=== PATIENT | female | born 1940 | race Caucasian/White ===

== ENCOUNTER 2017-11-20 23:29 | Inpatient (IN) | payer MEDICARE, MEDICAID ==
[~2017-11-20] VITALS: Ht 157.5 cm; Wt 58.6 kg
[~2017-11-20 23:29] MED LIST: ALPR-623 PO; CEFP100T7 PO; CEPH500C5 PO; COU5T PO; CYA500T PO; FAMO20TA8 PO; FLUT16SP2 BOTHNARES; KRIL500C PO; MAGN400C PO; PHEN-873 PO; SOTA80TA69 PO
[2017-11-20] MEDS ORDERED: normal saline 1000ML IV soln IVB ONE (23:50)
[2017-11-20] MEDS ORDERED: ondansetron/PF 4mg/2ml inj IV ONE (23:50)
[2017-11-20 23:55] LABS: BASOPHILS # (AUTO) 0.1 X10'3 (0-0.2); BASOPHILS % (AUTO) 1.3 % (0-1); EOSINOPHILS % (AUTO) 0.3 % (0-6); HEMATOCRIT 39.7 % (35.0-45.0); HEMOGLOBIN 13.5 g/dl (12.0-16.0); LYMPHOCYTES # (AUTO) 0.8 X10'3 (1.1-4.8); LYMPHOCYTES % (AUTO) 12.5 % (21-51); MEAN CORPUSCULAR HEMOGLOBIN 31.3 PG (27.0-31.0); MEAN CORPUSCULAR HGB CONC 34.1 % (33.0-36.5); MEAN CORPUSCULAR VOLUME 91.8 FL (78-98); MEAN PLATELET VOLUME 6.8 FL (7.4-10.4); MONOCYTES # (AUTO) 0.2 X10'3 (0-0.9); MONOCYTES % (AUTO) 3.5 % (2-12); NEUTROPHILS # (AUTO) 5.3 X10'3 (1.8-7.7); NEUTROPHILS % (AUTO) 82.4 % (42-75); PLATELET COUNT 204 X10'3 (140-440); RED BLOOD COUNT 4.32 X10'6 (4.20-5.60); RED CELL DISTRIBUTION WIDTH 13.3 % (11.5-14.5); WHITE BLOOD COUNT 6.5 X10'3 (4.5-11.0)
[2017-11-21 00:14] LABS: ALANINE AMINOTRANSFERASE 817 U/L (12-78); ALBUMIN 3.8 G/DL (3.4-5.0); ALBUMIN/GLOBULIN RATIO 1.1 (1.1-1.5); ALKALINE PHOSPHATASE 167 IU/L (46-116); ANION GAP 5 (8-16); BILIRUBIN,TOTAL 1.6 MG/DL (0.1-1.0); BLOOD UREA NITROGEN 12 MG/DL (7-18); CALCIUM 8.8 MG/DL (8.5-10.1); CHLORIDE 104 MMOL/L (99-107); GLUCOSE 141 MG/DL (70-104); LIPASE 232 U/L (73-393); POTASSIUM 3.6 MMOL/L (3.5-5.1); SODIUM 140 MMOL/L (135-145); TOTAL PROTEIN 7.3 G/DL (6.4-8.2); eGFR > 90 ML/MIN
[2017-11-21] MEDS ORDERED: iohexol 300mg/ml 100ml inj. ONE (00:20)
[2017-11-21 00:22] LABS: ASPARTATE AMINO TRANSFERASE 1173 U/L (10-37)
[2017-11-21 00:57] LABS: CLARITY,URINE CLEAR (Clear); COLOR,URINE YELLOW (Yellow); GLUCOSE, URINE NEGATIVE (Neg); KETONES,URINE NEGATIVE (Neg); LEUKOCYTE ESTERASE ,URINE NEGATIVE (Neg); NITRITES, URINE NEGATIVE (Neg); OCCULT BLOOD,URINE NEGATIVE (Neg); PROTEIN,URINE NEGATIVE (Neg); UROBILINOGEN,URINE 0.2 E.U/dL (0.2-1.0)
[2017-11-21 01:12] LABS: UA COLLECTION TYPE CLN CATCH MIDSTREAM
[2017-11-21] MEDS ORDERED: ondansetron/PF 4mg/2ml inj IV PRN (05:40)
[2017-11-21] MEDS ORDERED: HYDROmorphone 1 mg/ml syringe IV PRN (05:40)
[2017-11-21] MEDS ORDERED: piperacillin/tazo 3.375gm/50ml 50 ML IV ONE (05:40)
[2017-11-21] MEDS: normal saline 1000ml 1,000 ML IV SCH ×2 (06:33→12:39)
[2017-11-21] MEDS ORDERED: NORMAL SALINE IV ONE (09:00)
[2017-11-21] MEDS ORDERED: SINCALIDE IV ONE (09:00)
[2017-11-21 11:00] VITALS: BP 131/78
[2017-11-21] MEDS: sotalol 80mg tablet PO SCH ×2 (11:46→20:17)
[2017-11-21 11:49] LABS: INR 1.1 INR; PARTIAL THROMBOPLASTIN TIME 24 SECONDS (22-32); PROTHROMBIN TIME 11.1 SECONDS (9.0-12.0)
[2017-11-21] MEDS: piperacillin/tazo 3.375gm/50ml 50 ML IV SCH ×2 (14:47→20:17)
[2017-11-21 20:00] VITALS: BP 122/64
[2017-11-21] MEDS: acetaminophen 325mg tablet PO PRN (21:34)
[2017-11-22] VITALS: BP 127/57
[2017-11-22] MEDS: piperacillin/tazo 3.375gm/50ml 50 ML IV SCH ×4 (01:38→20:16)
[2017-11-22] MEDS: normal saline 1000ml 1,000 ML IV SCH ×3 (01:38→14:45)
[2017-11-22 06:07] LABS: BASOPHILS % (AUTO) 0.7 % (0-1); EOSINOPHILS # (AUTO) 0.1 X10'3 (0-0.9); EOSINOPHILS % (AUTO) 3.5 % (0-6); HEMATOCRIT 35.4 % (35.0-45.0); HEMOGLOBIN 11.9 g/dl (12.0-16.0); LYMPHOCYTES # (AUTO) 1.7 X10'3 (1.1-4.8); LYMPHOCYTES % (AUTO) 42.4 % (21-51); MEAN CORPUSCULAR HGB CONC 33.6 % (33.0-36.5); MEAN CORPUSCULAR VOLUME 92.2 FL (78-98); MEAN PLATELET VOLUME 7.4 FL (7.4-10.4); MONOCYTES # (AUTO) 0.4 X10'3 (0-0.9); MONOCYTES % (AUTO) 8.7 % (2-12); NEUTROPHILS # (AUTO) 1.8 X10'3 (1.8-7.7); NEUTROPHILS % (AUTO) 44.7 % (42-75); PLATELET COUNT 171 X10'3 (140-440); RED BLOOD COUNT 3.84 X10'6 (4.20-5.60); RED CELL DISTRIBUTION WIDTH 13.3 % (11.5-14.5); WHITE BLOOD COUNT 4.1 X10'3 (4.5-11.0)
[2017-11-22 06:47] LABS: ALANINE AMINOTRANSFERASE 397 U/L (12-78); ALBUMIN 2.9 G/DL (3.4-5.0); ALKALINE PHOSPHATASE 91 IU/L (46-116); ANION GAP 6 (8-16); ASPARTATE AMINO TRANSFERASE 192 U/L (10-37); BILIRUBIN,TOTAL 0.7 MG/DL (0.1-1.0); BLOOD UREA NITROGEN 10 MG/DL (7-18); BUN/CREATININE RATIO 12.5 (6.6-38.0); CALCIUM 8.1 MG/DL (8.5-10.1); CHLORIDE 110 MMOL/L (99-107); GLUCOSE 83 MG/DL (70-104); POTASSIUM 3.7 MMOL/L (3.5-5.1); SODIUM 143 MMOL/L (135-145); TOTAL CARBON DIOXIDE 26.7 MMOL/L (24-32); TOTAL PROTEIN 5.8 G/DL (6.4-8.2); eGFR 69 ML/MIN
[2017-11-22 07:28] VITALS: BP 143/86
[2017-11-22] MEDS: sotalol 80mg tablet PO SCH ×2 (08:30→20:16)
[2017-11-22] MEDS: acetaminophen 325mg tablet PO PRN ×2 (08:30→19:05)
[2017-11-22 11:45] VITALS: BP 130/80
[2017-11-22 20:00] VITALS: BP 126/73
[2017-11-23] VITALS (26 sets, daily range): BP systolic 128–203; BP diastolic 50–118
[2017-11-23] MEDS: piperacillin/tazo 3.375gm/50ml 50 ML IV SCH ×4 (02:19→20:56)
[2017-11-23] MEDS: acetaminophen 325mg tablet PO PRN (02:23)
[2017-11-23] MEDS: normal saline 1000ml 1,000 ML IV SCH ×2 (05:28→17:39)
[2017-11-23 06:08] LABS: BASOPHILS % (AUTO) 0.6 % (0-1); EOSINOPHILS # (AUTO) 0.2 X10'3 (0-0.9); EOSINOPHILS % (AUTO) 3.7 % (0-6); HEMATOCRIT 34.5 % (35.0-45.0); HEMOGLOBIN 11.6 g/dl (12.0-16.0); LYMPHOCYTES % (AUTO) 35.4 % (21-51); MEAN CORPUSCULAR HEMOGLOBIN 31.1 PG (27.0-31.0); MEAN CORPUSCULAR HGB CONC 33.6 % (33.0-36.5); MEAN CORPUSCULAR VOLUME 92.8 FL (78-98); MEAN PLATELET VOLUME 7.4 FL (7.4-10.4); MONOCYTES # (AUTO) 0.5 X10'3 (0-0.9); MONOCYTES % (AUTO) 9.2 % (2-12); NEUTROPHILS # (AUTO) 2.9 X10'3 (1.8-7.7); NEUTROPHILS % (AUTO) 51.1 % (42-75); PLATELET COUNT 183 X10'3 (140-440); RED BLOOD COUNT 3.72 X10'6 (4.20-5.60); RED CELL DISTRIBUTION WIDTH 12.8 % (11.5-14.5); WHITE BLOOD COUNT 5.8 X10'3 (4.5-11.0)
[2017-11-23 06:38] LABS: ALANINE AMINOTRANSFERASE 264 U/L (12-78); ALBUMIN 2.9 G/DL (3.4-5.0); ALKALINE PHOSPHATASE 85 IU/L (46-116); ANION GAP 7 (8-16); ASPARTATE AMINO TRANSFERASE 82 U/L (10-37); BILIRUBIN,TOTAL 0.5 MG/DL (0.1-1.0); BLOOD UREA NITROGEN 11 MG/DL (7-18); BUN/CREATININE RATIO 12.2 (6.6-38.0); CALCIUM 8.4 MG/DL (8.5-10.1); CHLORIDE 110 MMOL/L (99-107); GLUCOSE 91 MG/DL (70-104); POTASSIUM 3.6 MMOL/L (3.5-5.1); SODIUM 144 MMOL/L (135-145); TOTAL CARBON DIOXIDE 26.8 MMOL/L (24-32); TOTAL PROTEIN 5.8 G/DL (6.4-8.2); eGFR 60 ML/MIN
[2017-11-23 07:38] LABS: PRE OP PARTIAL THROMB. TIME 26 SECONDS (22-35); PROTHROMBIN TIME 10.7 SECONDS (9.0-12.0)
[2017-11-23] MEDS: sotalol 80mg tablet PO SCH ×2 (07:59→20:57)
[2017-11-23] MEDS ORDERED: ceFAZolin 1000mg inj ONE (13:33)
[2017-11-23] MEDS ORDERED: BUPIVAcaine/PF 2.5 mg/ml (0.25%) 30ml vial ONE (13:33)
[2017-11-23] MEDS ORDERED: ringers solution, lacted 1,000 ML IV SCH (13:54)
[2017-11-23] MEDS ORDERED: ondansetron/PF 4mg/2ml inj IV PRN (13:55)
[2017-11-23] MEDS ORDERED: morphine 2 MG/ML inj. syringe IV PRN ×2 (13:55)
[2017-11-23] MEDS ORDERED: meperidine/PF 25mg/ml syringe IV PRN ×3 (13:55)
[2017-11-23] MEDS ORDERED: proCHLORperazine 10 MG/2 ml inj IV PRN (13:55)
[2017-11-23] MEDS ORDERED: sevoflurane 250ml liquid IH ONE (14:16)
[2017-11-23] MEDS ORDERED: fentaNYL/PF 50MCG/1 ML 2ML syringe ONE (14:20)
[2017-11-23] MEDS ORDERED: midazolam 2 mg/2 ml injection ONE (14:21)
[2017-11-23] MEDS ORDERED: neostigmine methylsulfate 1 MG/ML 10ml vial ONE (15:01)
[2017-11-23] MEDS ORDERED: glycopyrrolate 0.2mg/ml inj ONE (15:01)
[2017-11-23] MEDS ORDERED: rocuronium 10mg/ml inj IV ONE (15:02)
[2017-11-23] MEDS ORDERED: propofol inj 20 ML IV ONE (15:02)
[2017-11-23] MEDS ORDERED: meperidine/PF 50mg/ml syringe ONE (15:54)
[2017-11-23] MEDS ORDERED: meperidine/PF 50mg/ml syringe IV PRN ×3 (16:17→16:18)
[2017-11-23] MEDS ORDERED: ketorolac trometh. 30mg/ml inj. IV ONE (17:50)
[2017-11-23] MEDS: LORazepam 2 mg/ml vial IV PRN (19:31)
[2017-11-23] MEDS ORDERED: HYDROmorphone inj. 0.5 MG/0.5 ML DISP.SYRIN ONE (19:54)
[2017-11-24] VITALS: BP 132/65
[2017-11-24] MEDS: piperacillin/tazo 3.375gm/50ml 50 ML IV SCH ×3 (01:32→14:00)
[2017-11-24] MEDS: normal saline 1000ml 1,000 ML IV SCH ×2 (01:32→15:10)
[2017-11-24] MEDS: HYDROcodone/acetaminophen 5mg/325mg tablet PO PRN (01:49)
[2017-11-24] MEDS ORDERED: HYDROmorphone inj. 0.5 MG/0.5 ML DISP.SYRIN ONE (03:05)
[2017-11-24 04:00] VITALS: BP 155/77
[2017-11-24 06:10] LABS: BASOPHILS % (AUTO) 0.1 % (0-1); EOSINOPHILS # (AUTO) 0.1 X10'3 (0-0.9); EOSINOPHILS % (AUTO) 1.1 % (0-6); HEMATOCRIT 34.6 % (35.0-45.0); HEMOGLOBIN 11.9 g/dl (12.0-16.0); LYMPHOCYTES # (AUTO) 1.2 X10'3 (1.1-4.8); LYMPHOCYTES % (AUTO) 9.1 % (21-51); MEAN CORPUSCULAR HEMOGLOBIN 31.4 PG (27.0-31.0); MEAN CORPUSCULAR HGB CONC 34.6 % (33.0-36.5); MEAN CORPUSCULAR VOLUME 90.8 FL (78-98); MEAN PLATELET VOLUME 7.3 FL (7.4-10.4); MONOCYTES # (AUTO) 0.3 X10'3 (0-0.9); MONOCYTES % (AUTO) 2.2 % (2-12); NEUTROPHILS # (AUTO) 11.7 X10'3 (1.8-7.7); NEUTROPHILS % (AUTO) 87.5 % (42-75); PLATELET COUNT 185 X10'3 (140-440); RED CELL DISTRIBUTION WIDTH 12.8 % (11.5-14.5); WHITE BLOOD COUNT 13.3 X10'3 (4.5-11.0)
[2017-11-24 06:52] LABS: ALANINE AMINOTRANSFERASE 237 U/L (12-78); ALBUMIN 2.9 G/DL (3.4-5.0); ALBUMIN/GLOBULIN RATIO 0.9 (1.1-1.5); ALKALINE PHOSPHATASE 88 IU/L (46-116); ANION GAP 13 (8-16); ASPARTATE AMINO TRANSFERASE 98 U/L (10-37); BILIRUBIN,TOTAL 1.1 MG/DL (0.1-1.0); BLOOD UREA NITROGEN 9 MG/DL (7-18); BUN/CREATININE RATIO 13.4 (6.6-38.0); CALCIUM 8.1 MG/DL (8.5-10.1); CHLORIDE 103 MMOL/L (99-107); CREATININE 0.67 MG/DL (0.40-0.90); GLUCOSE 105 MG/DL (70-104); POTASSIUM 3.1 MMOL/L (3.5-5.1); SODIUM 140 MMOL/L (135-145); TOTAL CARBON DIOXIDE 24.3 MMOL/L (24-32); TOTAL PROTEIN 6.1 G/DL (6.4-8.2); eGFR 85 ML/MIN
[2017-11-24] MEDS: lactobacillus rhamnosus 10,000 MMU CELLS/CAPSULE PO SCH ×2 (07:36→17:47)
[2017-11-24] MEDS: sotalol 80mg tablet PO SCH ×2 (07:47→19:41)
[2017-11-24 08:00] VITALS: BP 102/52
[2017-11-24] MEDS: ketorolac trometh. 30mg/ml inj. IM SCH ×2 (15:10→19:43)
[2017-11-24] MEDS ORDERED: potassium Cl 20 mEq SR tablet PO PRN (18:45)
[2017-11-24 19:00] VITALS: BP 109/60
[2017-11-24] MEDS: potassium Cl 20 mEq SR tablet PO PRN (19:41)
[2017-11-25] VITALS: BP 134/46
[2017-11-25] MEDS: normal saline 1000ml 1,000 ML IV SCH ×3 (00:30→18:28)
[2017-11-25] MEDS: ketorolac trometh. 30mg/ml inj. IM SCH ×2 (02:25→08:00)
[2017-11-25] MEDS: acetaminophen 325mg tablet PO PRN (02:29)
[2017-11-25] MEDS: potassium Cl 20 mEq SR tablet PO PRN (02:29)
[2017-11-25 05:59] LABS: BASOPHILS % (AUTO) 0.4 % (0-1); EOSINOPHILS # (AUTO) 0.2 X10'3 (0-0.9); EOSINOPHILS % (AUTO) 2.6 % (0-6); HEMATOCRIT 30.8 % (35.0-45.0); HEMOGLOBIN 10.6 g/dl (12.0-16.0); LYMPHOCYTES # (AUTO) 1.3 X10'3 (1.1-4.8); MEAN CORPUSCULAR HEMOGLOBIN 31.5 PG (27.0-31.0); MEAN CORPUSCULAR HGB CONC 34.4 % (33.0-36.5); MEAN CORPUSCULAR VOLUME 91.4 FL (78-98); MEAN PLATELET VOLUME 7.6 FL (7.4-10.4); MONOCYTES # (AUTO) 0.4 X10'3 (0-0.9); MONOCYTES % (AUTO) 5.9 % (2-12); NEUTROPHILS # (AUTO) 5.7 X10'3 (1.8-7.7); NEUTROPHILS % (AUTO) 74.1 % (42-75); PLATELET COUNT 162 X10'3 (140-440); RED BLOOD COUNT 3.37 X10'6 (4.20-5.60); RED CELL DISTRIBUTION WIDTH 13.2 % (11.5-14.5); WHITE BLOOD COUNT 7.6 X10'3 (4.5-11.0)
[2017-11-25 06:30] LABS: ALANINE AMINOTRANSFERASE 147 U/L (12-78); ALBUMIN 2.4 G/DL (3.4-5.0); ALBUMIN/GLOBULIN RATIO 0.8 (1.1-1.5); ALKALINE PHOSPHATASE 87 IU/L (46-116); ANION GAP 8 (8-16); ASPARTATE AMINO TRANSFERASE 42 U/L (10-37); BILIRUBIN,TOTAL 0.6 MG/DL (0.1-1.0); BLOOD UREA NITROGEN 12 MG/DL (7-18); BUN/CREATININE RATIO 13.6 (6.6-38.0); CALCIUM 7.9 MG/DL (8.5-10.1); CHLORIDE 109 MMOL/L (99-107); CREATININE 0.88 MG/DL (0.40-0.90); GLUCOSE 124 MG/DL (70-104); POTASSIUM 4.1 MMOL/L (3.5-5.1); SODIUM 143 MMOL/L (135-145); TOTAL CARBON DIOXIDE 25.6 MMOL/L (24-32); TOTAL PROTEIN 5.5 G/DL (6.4-8.2); eGFR 62 ML/MIN
[2017-11-25 07:00] VITALS: BP 137/71
[2017-11-25] MEDS: sotalol 80mg tablet PO SCH ×2 (08:26→21:20)
[2017-11-25] MEDS: lactobacillus rhamnosus 10,000 MMU CELLS/CAPSULE PO SCH ×2 (08:26→17:12)
[2017-11-25] MEDS: ketorolac trometh. 30mg/ml inj. IV SCH ×3 (09:53→21:21)
[2017-11-25] MEDS ORDERED: ketorolac tromethamine 15mg/ml inj. IV SCH (12:00)
[2017-11-25] MEDS: HYDROcodone/acetaminophen 5mg/325mg tablet PO PRN ×2 (14:22→21:22)
[2017-11-25 19:00] VITALS: BP 126/53
[2017-11-26] VITALS: BP 145/57
[2017-11-26] MEDS: ketorolac trometh. 30mg/ml inj. IV SCH ×4 (02:28→19:33)
[2017-11-26] MEDS: normal saline 1000ml 1,000 ML IV SCH ×2 (02:31→15:33)
[2017-11-26 05:45] LABS: BASOPHILS % (AUTO) 0.6 % (0-1); EOSINOPHILS # (AUTO) 0.3 X10'3 (0-0.9); EOSINOPHILS % (AUTO) 4.8 % (0-6); HEMATOCRIT 28.9 % (35.0-45.0); HEMOGLOBIN 9.9 g/dl (12.0-16.0); LYMPHOCYTES # (AUTO) 1.3 X10'3 (1.1-4.8); LYMPHOCYTES % (AUTO) 23.5 % (21-51); MEAN CORPUSCULAR HEMOGLOBIN 31.4 PG (27.0-31.0); MEAN CORPUSCULAR HGB CONC 34.3 % (33.0-36.5); MEAN CORPUSCULAR VOLUME 91.6 FL (78-98); MEAN PLATELET VOLUME 7.6 FL (7.4-10.4); MONOCYTES # (AUTO) 0.4 X10'3 (0-0.9); MONOCYTES % (AUTO) 7.5 % (2-12); NEUTROPHILS # (AUTO) 3.5 X10'3 (1.8-7.7); NEUTROPHILS % (AUTO) 63.6 % (42-75); PLATELET COUNT 158 X10'3 (140-440); RED BLOOD COUNT 3.16 X10'6 (4.20-5.60); RED CELL DISTRIBUTION WIDTH 13.5 % (11.5-14.5); WHITE BLOOD COUNT 5.5 X10'3 (4.5-11.0)
[2017-11-26 06:36] LABS: ALANINE AMINOTRANSFERASE 113 U/L (12-78); ALBUMIN 2.2 G/DL (3.4-5.0); ALBUMIN/GLOBULIN RATIO 0.7 (1.1-1.5); ALKALINE PHOSPHATASE 84 IU/L (46-116); ANION GAP 8 (8-16); ASPARTATE AMINO TRANSFERASE 29 U/L (10-37); BILIRUBIN,TOTAL 0.4 MG/DL (0.1-1.0); BLOOD UREA NITROGEN 12 MG/DL (7-18); BUN/CREATININE RATIO 18.5 (6.6-38.0); CALCIUM 8.1 MG/DL (8.5-10.1); CHLORIDE 108 MMOL/L (99-107); CREATININE 0.65 MG/DL (0.40-0.90); GLUCOSE 92 MG/DL (70-104); POTASSIUM 3.8 MMOL/L (3.5-5.1); SODIUM 142 MMOL/L (135-145); TOTAL CARBON DIOXIDE 25.8 MMOL/L (24-32); TOTAL PROTEIN 5.3 G/DL (6.4-8.2); eGFR 88 ML/MIN
[2017-11-26 08:00] VITALS: BP 155/53
[2017-11-26] MEDS: sotalol 80mg tablet PO SCH ×2 (08:02→19:33)
[2017-11-26] MEDS: lactobacillus rhamnosus 10,000 MMU CELLS/CAPSULE PO SCH ×2 (08:02→16:44)
[2017-11-26] MEDS: HYDROcodone/acetaminophen 5mg/325mg tablet PO PRN ×2 (08:06→19:34)
[2017-11-26 11:58] VITALS: BP 132/66
[2017-11-26 19:00] VITALS: BP 178/69
[2017-11-26] MEDS: LORazepam 2 mg/ml vial IV PRN (23:14)
[2017-11-27] VITALS: BP 184/74
[2017-11-27] MEDS: normal saline 1000ml 1,000 ML IV SCH ×2 (02:16→11:39)
[2017-11-27] MEDS: ketorolac trometh. 30mg/ml inj. IV SCH ×3 (02:17→14:00)
[2017-11-27] MEDS: lactobacillus rhamnosus 10,000 MMU CELLS/CAPSULE PO SCH (08:07)
[2017-11-27] MEDS: sotalol 80mg tablet PO SCH (08:07)
[2017-11-27 08:18] VITALS: BP 143/55
[2017-11-27] MEDS: HYDROcodone/acetaminophen 5mg/325mg tablet PO PRN (10:33)
[2017-11-27 11:00] VITALS: BP 147/66
== END 2017-11-27 17:22 | disposition home or self-care (01) | DRG 419 ==
LOC: ER 23:30 → ED HOLD 11-21 05:39 → SUR 3N 11-21 10:32
PROVIDERS: ADMIT Internal Medicine; ATTEND Family Medicine
PROC: CF141ZZ Planar Nuclear Medicine Imaging of Gallbladder using Technetium 99m (Tc-99m) (ICD-10-PCS; 2017-11-21)
PROC: B4201ZZ Computerized Tomography (CT Scan) of Abdominal Aorta using Low Osmolar Contrast (ICD-10-PCS; 2017-11-21)
PROC: B4281ZZ Computerized Tomography (CT Scan) of Bilateral Renal Arteries using Low Osmolar Contrast (ICD-10-PCS; 2017-11-21)
PROC: B4211ZZ Computerized Tomography (CT Scan) of Celiac Artery using Low Osmolar Contrast (ICD-10-PCS; 2017-11-21)
PROC: 0DNU4ZZ Release Omentum, Percutaneous Endoscopic Approach (ICD-10-PCS; 2017-11-23)
PROC: 0DNL4ZZ Release Transverse Colon, Percutaneous Endoscopic Approach (ICD-10-PCS; 2017-11-23)
PROC: 0FN04ZZ Release Liver, Percutaneous Endoscopic Approach (ICD-10-PCS; 2017-11-23)
PROC: 0FT44ZZ Resection of Gallbladder, Percutaneous Endoscopic Approach (ICD-10-PCS; principal; 2017-11-23 14:16)
DX: K80.00 Calculus of gallbladder with acute cholecystitis without obstruction (principal); I48.0 Paroxysmal atrial fibrillation; E87.6 Hypokalemia; I10 Essential (primary) hypertension; K82.8 Other specified diseases of gallbladder; K66.0 Peritoneal adhesions (postprocedural) (postinfection); Z88.2 Allergy status to sulfonamides; Z88.1 Allergy status to other antibiotic agents; Z88.8 Allergy status to other drugs, medicaments and biological substances; Z79.899 Other long term (current) drug therapy
CPT/HCPCS: 36415; 71045; 74174; 76700; 78227; 80053; 81003; 82948; 83605; 83690; 84484; 85025; 85610; 85730; 87070; 88304; 93005; 96361; 96374; 96375; 99285; A4353; A7000; A9537; J0690; J1170; J1885; J2060; J2175; J2250; J2405; J2543; J2704; J2710; J2805; J3010; J3490; J7030; J7040; J7120; Q9967

== ENCOUNTER 2018-01-31 14:37 | Outpatient (CLI) | payer MEDICARE, MEDICAID ==
[~2018-01-31 14:37] MED LIST changes: -CEFP100T7 PO; -CEPH500C5 PO; -COU5T PO; -FLUT16SP2 BOTHNARES; -PHEN-873 PO
[2018-01-31 14:55] VITALS: BP 136/68
== END 2018-01-31 15:26 | disposition home or self-care (01) ==
LOC: ORTHO 14:37
PROVIDERS: ATTEND Nurse Practitioner Family
DX: S69.92XA Unspecified injury of left wrist, hand and finger(s), initial encounter (principal); I48.91 Unspecified atrial fibrillation; Z88.0 Allergy status to penicillin; Z88.2 Allergy status to sulfonamides; X58.XXXA Exposure to other specified factors, initial encounter; Y93.89 Activity, other specified; Y92.89 Other specified places as the place of occurrence of the external cause; Y99.8 Other external cause status
CPT/HCPCS: 29260; 99213

== ENCOUNTER 2018-02-06 15:43 | Emergency (ER) | payer MEDICARE, MEDICAID ==
[~2018-02-06] VITALS: Ht 157.5 cm; Wt 57.7 kg
[2018-02-06] MEDS ORDERED: normal saline 1000ML IV soln IV ONE (16:35)
[2018-02-06 16:52] LABS: CLARITY,URINE CLEAR (Clear); COLOR,URINE STRAW (Yellow); GLUCOSE, URINE NEGATIVE (Neg); KETONES,URINE NEGATIVE (Neg); LEUKOCYTE ESTERASE ,URINE NEGATIVE (Neg); NITRITES, URINE NEGATIVE (Neg); OCCULT BLOOD,URINE NEGATIVE (Neg); PROTEIN,URINE NEGATIVE (Neg); UA COLLECTION TYPE CLN CATCH MIDSTREAM; UROBILINOGEN,URINE 0.2 E.U/dL (0.2-1.0)
[2018-02-06 17:01] LABS: BASOPHILS % (AUTO) 0.1 % (0-1); EOSINOPHILS % (AUTO) 0.2 % (0-6); HEMATOCRIT 38.2 % (35.0-45.0); HEMOGLOBIN 13.1 g/dl (12.0-16.0); LYMPHOCYTES # (AUTO) 0.5 X10'3 (1.1-4.8); LYMPHOCYTES % (AUTO) 5.8 % (21-51); MEAN CORPUSCULAR HEMOGLOBIN 31.1 PG (27.0-31.0); MEAN CORPUSCULAR HGB CONC 34.2 % (33.0-36.5); MEAN CORPUSCULAR VOLUME 90.7 FL (78-98); MEAN PLATELET VOLUME 6.9 FL (7.4-10.4); MONOCYTES # (AUTO) 0.1 X10'3 (0-0.9); MONOCYTES % (AUTO) 1.3 % (2-12); NEUTROPHILS # (AUTO) 8.4 X10'3 (1.8-7.7); NEUTROPHILS % (AUTO) 92.6 % (42-75); PLATELET COUNT 186 X10'3 (140-440); RED BLOOD COUNT 4.21 X10'6 (4.20-5.60); RED CELL DISTRIBUTION WIDTH 13.4 % (11.5-14.5); WHITE BLOOD COUNT 9.1 X10'3 (4.5-11.0)
[2018-02-06 17:08] LABS: PARTIAL THROMBOPLASTIN TIME 25 SECONDS (22-32); PROTHROMBIN TIME 10.2 SECONDS (9.0-12.0)
[2018-02-06 17:16] LABS: ALANINE AMINOTRANSFERASE 36 U/L (12-78); ALBUMIN 3.5 G/DL (3.4-5.0); ALKALINE PHOSPHATASE 82 IU/L (46-116); ANION GAP 8 (8-16); ASPARTATE AMINO TRANSFERASE 37 U/L (10-37); BILIRUBIN,TOTAL 0.9 MG/DL (0.1-1.0); BLOOD UREA NITROGEN 18 MG/DL (7-18); BUN/CREATININE RATIO 27.3 (6.6-38.0); CALCIUM 8.8 MG/DL (8.5-10.1); CHLORIDE 103 MMOL/L (99-107); CREATININE 0.66 MG/DL (0.40-0.90); GLUCOSE 106 MG/DL (70-104); POTASSIUM 3.9 MMOL/L (3.5-5.1); SODIUM 137 MMOL/L (135-145); TOTAL CARBON DIOXIDE 26.2 MMOL/L (24-32); eGFR 86 ML/MIN
[2018-02-06 18:03] VITALS: BP 132/65
== END 2018-02-06 18:05 | disposition home or self-care (01) ==
LOC: ER 15:43
DX: S00.83XA Contusion of other part of head, initial encounter (principal); R07.81 Pleurodynia; I48.91 Unspecified atrial fibrillation; Z95.0 Presence of cardiac pacemaker; Z88.8 Allergy status to other drugs, medicaments and biological substances; Z88.2 Allergy status to sulfonamides; Z79.899 Other long term (current) drug therapy; X58.XXXA Exposure to other specified factors, initial encounter; Y93.89 Activity, other specified; Y92.89 Other specified places as the place of occurrence of the external cause; Y99.8 Other external cause status
CPT/HCPCS: 36415; 71045; 80053; 81003; 83605; 83735; 84145; 85025; 85610; 85730; 87040; 87186; 99285; J7030

== ENCOUNTER 2018-02-27 17:42 | Emergency (ER) | payer MEDICARE, MEDICAID ==
[~2018-02-27] VITALS: Ht 160 cm; Wt 56.8 kg
[2018-02-27 18:33] VITALS: BP 108/67
== END 2018-02-27 18:33 | disposition home or self-care (01) ==
LOC: ER 17:43
DX: Z48.02 Encounter for removal of sutures (principal); I48.91 Unspecified atrial fibrillation; I10 Essential (primary) hypertension; Z98.890 Other specified postprocedural states; Z88.2 Allergy status to sulfonamides; Z79.899 Other long term (current) drug therapy
CPT/HCPCS: 99281

== ENCOUNTER 2021-04-11 23:32 | Emergency (ER) | payer MEDICARE, MEDICAID ==
[~2021-04-11] VITALS: Ht 160 cm; Wt 54.5 kg
[~2021-04-11 23:32] MED LIST changes: -CYA500T PO; +CYAN500T71 PO; -SOTA80TA69 PO; +SOTA80TA73 PO
[2021-04-12] VITALS: BP 188/81
[2021-04-12] MEDS ORDERED: bisacodyl 10mg suppository rectal RC STA (00:15)
[2021-04-12] MEDS ORDERED: bisacodyl 5mg tablet.DR PO ONE (00:15)
[2021-04-12] MEDS ORDERED: POLY17PO10 PO (01:29)
[2021-04-12] MEDS ORDERED: BISA-78 PO (01:29)
== END 2021-04-12 02:05 | disposition home or self-care (01) ==
LOC: ER 23:33
DX: K59.00 Constipation, unspecified (principal); I48.91 Unspecified atrial fibrillation; I10 Essential (primary) hypertension; Z87.01 Personal history of pneumonia (recurrent); Z88.2 Allergy status to sulfonamides; Z88.1 Allergy status to other antibiotic agents; Z88.8 Allergy status to other drugs, medicaments and biological substances; Z79.899 Other long term (current) drug therapy
CPT/HCPCS: 99283

== ENCOUNTER 2021-04-22 06:09 | Observation (INO) | payer MEDICARE, MEDICAID ==
[2021-04-17 15:16] LABS: CLARITY,URINE CLOUDY (Clear); COLOR,URINE YELLOW (Yellow); GLUCOSE, URINE NEGATIVE (Neg); KETONES,URINE NEGATIVE (Neg); LEUKOCYTE ESTERASE ,URINE TRACE (Neg); NITRITES, URINE NEGATIVE (Neg); OCCULT BLOOD,URINE NEGATIVE (Neg); PROTEIN,URINE NEGATIVE (Neg); UROBILINOGEN,URINE 0.2 E.U/dL (0.2-1.0)
[2021-04-17 15:17] LABS: BASOPHILS # (AUTO) 0.1 X10'3 (0-0.2); BASOPHILS % (AUTO) 1.1 % (0-1); EOSINOPHILS # (AUTO) 0.1 X10'3 (0-0.9); EOSINOPHILS % (AUTO) 1.6 % (0-6); LYMPHOCYTES # (AUTO) 1.7 X10'3 (1.1-4.8); LYMPHOCYTES % (AUTO) 27.4 % (21-51); MEAN CORPUSCULAR HEMOGLOBIN 31.2 PG (27.0-31.0); MEAN CORPUSCULAR HGB CONC 33.2 g/dL (33.0-36.5); MEAN CORPUSCULAR VOLUME 93.7 FL (78-98); MEAN PLATELET VOLUME 7.1 FL (7.4-10.4); MONOCYTES # (AUTO) 0.6 X10'3 (0-0.9); MONOCYTES % (AUTO) 9.1 % (2-12); NEUTROPHILS # (AUTO) 3.8 X10'3 (1.8-7.7); NEUTROPHILS % (AUTO) 60.8 % (42-75); PRE OP HEMATOCRIT 40.4 % (35.0-45.0); PRE OP HEMOGLOBIN 13.4 g/dL (12.0-16.0); PRE OP PLATELET COUNT 212 X10'3 (140-440); RED BLOOD COUNT 4.31 X10'6 (4.20-5.60); RED CELL DISTRIBUTION WIDTH 13.5 % (11.5-14.5)
[2021-04-17 15:19] LABS: UA COLLECTION TYPE NON-SPECIFIED
[2021-04-17 15:20] LABS: AMORPHOUS PHOSPHATES 4+; BACTERIA,URINE NONE SEEN /HPF (Neg); MUCUS STRANDS NONE SEEN /LPF (Neg); RBC,URINE NONE SEEN /HPF (0-2); SQUAMOUS EPITHELIAL CELL,UR NONE SEEN /LPF (FEW); WBC,URINE 0-4 /HPF (0-4)
[2021-04-17 15:34] LABS: ALBUMIN 3.4 G/DL (3.4-5.0); ALBUMIN/GLOBULIN RATIO 0.9 (1.1-1.5); ALKALINE PHOSPHATASE 70 IU/L (46-116); BLOOD UREA NITROGEN 15 MG/DL (7-18); BUN/CREATININE RATIO 20.3 (6.6-38.0); CALCIUM 8.6 MG/DL (8.5-10.1); CHLORIDE 106 MMOL/L (99-107); CREATININE 0.74 MG/DL (0.40-0.90); PRE OP ALT 28 U/L (30-65); PRE OP ANION GAP 6 (8-16); PRE OP AST 19 U/L (10-37); PRE OP BILIRUB, TOTAL 0.4 MG/DL (0.0-1.0); PRE OP GLUCOSE 112 MG/DL (70-104); PRE OP POTASSIUM 4.3 MMOL/L (3.4-5.1); PRE OP SODIUM 141 MMOL/L (135-145); TOTAL PROTEIN 7.1 G/DL (6.4-8.2); eGFR 75 ML/MIN
[2021-04-22] VITALS (27 sets, daily range): BP systolic 107–187; BP diastolic 49–94
[~2021-04-22] VITALS: Ht 157.5 cm; Wt 54.8 kg
[~2021-04-22 06:09] MED LIST changes: -ALPR-623 PO; -CYAN500T71 PO; +DOCUMENT DATE & TIME OF BETA-BLOCKER PO ONE; -FAMO20TA8 PO; -KRIL500C PO; -MAGN400C PO; +cefazolin/dext.iso 2gm/100ml IV ONE; +famotidine 20mg tablet PO ONE; +ringers solution, lacted 1,000 ML IV SCH
[2021-04-22] MEDS ORDERED: BUPIVAcaine 0.5% inj/PF 30 ML ONE (06:40)
[2021-04-22] MEDS ORDERED: fentaNYL/PF 50MCG/1 ML 2ML syringe ONE (07:24)
[2021-04-22] MEDS ORDERED: rocuronium 10mg/ml inj IV ONE (07:28)
[2021-04-22] MEDS ORDERED: LIDOcaine 2% (20mg/ml) 5ml vial ONE (07:28)
[2021-04-22] MEDS ORDERED: propofol inj 20 ML IV ONE (07:28)
[2021-04-22] MEDS ORDERED: BUPIVAcaine 0.5% inj/PF 30 ml vial IJ ONE (07:31)
[2021-04-22] MEDS ORDERED: sevoflurane 250ml liquid IH ONE (08:05)
[2021-04-22] MEDS ORDERED: ondansetron/PF 4mg/2ml inj IV PRN (08:10)
[2021-04-22] MEDS ORDERED: ringers solution, lacted 1,000 ML IV SCH (08:10)
[2021-04-22] MEDS ORDERED: glycopyrrolate 0.2mg/ml inj ONE (10:14)
[2021-04-22] MEDS ORDERED: neostigmine methylsulfate 1 MG/ML 10ml vial ONE (10:14)
[2021-04-22] MEDS ORDERED: hydrALAZINE 20mg/ml inj. IV ONE (10:14)
[2021-04-22] MEDS ORDERED: acetaminophen 1,000mg/100ml IV 100 ML IV ONE (10:14)
[2021-04-22] MEDS ORDERED: ondansetron/PF 4mg/2ml inj ONE (10:14)
[2021-04-22] MEDS ORDERED: dexamethasone sod phosphate 4mg/ml inj. ONE (10:14)
[2021-04-22] MEDS ORDERED: sugammadex 200mg/2ml injection IV ONE (10:53)
--- NOTE | 2021-04-22 10:55 | NUR ---
Received from OR via BED, accompanied by Anesthesiologist DR. GR and report given by Anesthesiologist. PATIENT WAKING UP, C/O PAINFUL ABD-WILL MEDICATE, V/S WNL, SCD ON, 20G TO RUE, LAP SURGICAL SITES TO ABDOMEN X4 WITH DERMABOND - CDI.
[2021-04-22] MEDS: morphine 2 MG/ML inj. syringe IV PRN ×2 (11:04→11:18)
--- NOTE | 2021-04-22 11:30 | NUR ---
PT STAYING FOR OBSERVATION, STILL PAINFUL, USING BOTH MORPHINE AND DILAUDID FOR PAIN CONTROL, DENIES N/V, LAP SITES CDI.
[2021-04-22] MEDS: HYDROmorphone/PF 0.2 MG/ML SYRINGE IV PRN ×2 (11:41→12:48)
--- NOTE | 2021-04-22 12:40 | NUR ---
PT C/O PAIN GIVEN IVP DILAUDID, VSS, WAITING FOR A BED.
--- NOTE | 2021-04-22 13:25 | NUR ---
PT VSS, A/O X 4, PAIN 4/10 TENDER ABD, VOIDING IN BED-ENCOURAGED TO USE BSC OR BEDPAN, LAP SITES X 4 DERMABOND-CDI, PIV 20G TO RUE-LR RUNNING AT 100ML/HR, REPORT CALLED TO ART MELVIN- ALL QUESTIONS ANSWERED. PT TAKEN WITH ALL BELONGINGS TO ROOM 344A, HOOKED UP TO MONITORS, RN IN ROOM TO RECEIVE PT, BED LOW AND LOCKED. Addendum: 04/22/21 at 1416 by Dee Jain RN Amended: Links added.
[2021-04-22] MEDS: normal saline 1000ml 1,000 ML IV SCH ×2 (17:16→22:30)
--- NOTE | 2021-04-22 18:53 | NUR ---
Patient in room [facility]. I have received report from OLEGARIO Oakley and had the opportunity to ask questions and assume patient care.
[2021-04-22] MEDS: sotalol 80mg tablet PO SCH (19:42)
[2021-04-22] MEDS: HYDROcodone/acetaminophen 10/325mg tab PO PRN (22:21)
[2021-04-22] MEDS ORDERED: acetaminophen 325mg tablet PO PRN (23:10)
[2021-04-23 00:27] VITALS: BP 90/56
[2021-04-23] MEDS: normal saline 1000ml 1,000 ML IV SCH ×2 (04:10→16:13)
[2021-04-23 04:19] VITALS: BP 125/50
--- NOTE | 2021-04-23 06:07 | NUR ---
Problems reprioritized. Patient report given, questions answered & plan of care reviewed with OLEGARIO Lopez.
[2021-04-23 07:00] VITALS: BP 121/49
[2021-04-23] MEDS: sotalol 80mg tablet PO SCH ×2 (07:33→22:27)
[2021-04-23 11:00] VITALS: BP 140/58
[2021-04-23] MEDS: HYDROcodone/acetaminophen 10/325mg tab PO PRN ×2 (11:08→22:27)
--- NOTE | 2021-04-23 18:34 | NUR ---
Report given to Cathie RN, patient awake and appropriate in room. No current concerns except that patient has been slightly unsteady today so Cathie will monitor.
[2021-04-23 19:15] VITALS: BP 151/61
--- NOTE | 2021-04-23 23:12 | NUR ---
Patient in room [facility]. I have received report from Jessica MELVIN and had the opportunity to ask questions and assume patient care.
[2021-04-23] MEDS ORDERED: mag hydrox/Alum hydrox/simeth 30ml oral suspension PO PRN (23:55)
[2021-04-24] VITALS (7 sets, daily range): BP systolic 120–194; BP diastolic 54–74
[2021-04-24] MEDS: normal saline 1000ml 1,000 ML IV SCH ×4 (05:28→21:21)
--- NOTE | 2021-04-24 06:39 | NUR ---
Patient in room [facility]. I have received report from Donn MELVIN and had the opportunity to ask questions and assume patient care.
--- NOTE | 2021-04-24 07:05 | NUR ---
Problems reprioritized. Patient report given, questions answered & plan of care reviewed with Jacqui MELVIN.
[2021-04-24] MEDS: sotalol 80mg tablet PO SCH ×2 (09:32→21:22)
--- NOTE | 2021-04-24 16:41 | NUR ---
This afternoon, pt has been stating she has nausea and does not feel ready to go home. Phone call to Dr Martinez, orders received. Will continue to monitor.
--- NOTE | 2021-04-24 18:54 | NUR ---
Problems reprioritized. Patient report given, questions answered & plan of care reviewed with Donn MELVIN.
--- NOTE | 2021-04-24 19:01 | NUR ---
Patient in room [facility]. I have received report from Jacqui MELVIN and had the opportunity to ask questions and assume patient care.
[2021-04-24] MEDS: LORazepam 2 mg/ml vial IV PRN (23:26)
[2021-04-25 06:30] VITALS: BP 163/59
--- NOTE | 2021-04-25 07:10 | NUR ---
Patient in room [facility]. I have received report from OLEGARIO Pop and had the opportunity to ask questions and assume patient care.
[2021-04-25] MEDS ORDERED: magnesium hydroxide 30ml (MOM) UD suspension PO PRN (07:45)
--- NOTE | 2021-04-25 07:55 | NUR ---
Problems reprioritized. Patient report given, questions answered & plan of care reviewed with Jeane RN.
[2021-04-25 08:38] LABS: BASOPHILS % (AUTO) 0.5 % (0-1); EOSINOPHILS # (AUTO) 0.1 X10'3 (0-0.9); EOSINOPHILS % (AUTO) 1.7 % (0-6); HEMATOCRIT 38.5 % (35.0-45.0); HEMOGLOBIN 13.1 g/dl (12.0-16.0); LYMPHOCYTES # (AUTO) 1.1 X10'3 (1.1-4.8); LYMPHOCYTES % (AUTO) 18.2 % (21-51); MEAN CORPUSCULAR HEMOGLOBIN 31.3 PG (27.0-31.0); MEAN CORPUSCULAR VOLUME 92.1 FL (78-98); MEAN PLATELET VOLUME 7.3 FL (7.4-10.4); MONOCYTES # (AUTO) 0.5 X10'3 (0-0.9); MONOCYTES % (AUTO) 7.6 % (2-12); NEUTROPHILS # (AUTO) 4.5 X10'3 (1.8-7.7); PLATELET COUNT 209 X10'3 (140-440); RED BLOOD COUNT 4.17 X10'6 (4.20-5.60); RED CELL DISTRIBUTION WIDTH 13.2 % (11.5-14.5); WHITE BLOOD COUNT 6.3 X10'3 (4.5-11.0)
[2021-04-25 09:17] LABS: ALANINE AMINOTRANSFERASE 36 U/L (12-78); ALBUMIN 2.8 G/DL (3.4-5.0); ALBUMIN/GLOBULIN RATIO 0.8 (1.1-1.5); ALKALINE PHOSPHATASE 71 IU/L (46-116); ANION GAP 7 (8-16); ASPARTATE AMINO TRANSFERASE 30 U/L (10-37); BILIRUBIN,TOTAL 0.8 MG/DL (0.1-1.0); BLOOD UREA NITROGEN 9 MG/DL (7-18); BUN/CREATININE RATIO 14.5 (6.6-38.0); CALCIUM 8.2 MG/DL (8.5-10.1); CHLORIDE 105 MMOL/L (99-107); CREATININE 0.62 MG/DL (0.40-0.90); GLUCOSE 90 MG/DL (70-104); POTASSIUM 3.7 MMOL/L (3.5-5.1); SODIUM 140 MMOL/L (135-145); TOTAL CARBON DIOXIDE 28.2 MMOL/L (24-32); TOTAL PROTEIN 6.5 G/DL (6.4-8.2); eGFR > 90 ML/MIN
[2021-04-25] MEDS: sotalol 80mg tablet PO SCH (09:20)
[2021-04-25 11:00] VITALS: BP 154/60
[2021-04-25] MEDS: LORazepam 2 mg/ml vial IV PRN (13:57)
--- NOTE | 2021-04-25 16:30 | NUR ---
GAURI inst provided to pt.
--- NOTE | 2021-04-25 18:10 | NUR ---
Problems reprioritized. Patient report given, questions answered & plan of care reviewed with Sally RN & JEFFRY RN.
--- NOTE | 2021-04-25 19:03 | NUR ---
Patient in room [facility]. I have received report from AYDEE MELVIN and had the opportunity to ask questions and assume patient care.
--- NOTE | 2021-04-25 19:55 | NUR ---
PATIENT LEFT WITH SON. TRANSPORTED IN A WHEEL CHAIR WITH NO APPARENT DISTRESS.
== END 2021-04-25 20:02 | disposition home or self-care (01) ==
LOC: PAS 06:09 → SUR 3N 12:26
PROVIDERS: ADMIT Surgery; ATTEND Surgery
DX: K40.20 Bilateral inguinal hernia, without obstruction or gangrene, not specified as recurrent (principal); K43.9 Ventral hernia without obstruction or gangrene; I48.91 Unspecified atrial fibrillation; K66.0 Peritoneal adhesions (postprocedural) (postinfection); Z20.822 Contact with and (suspected) exposure to COVID-19; Z87.891 Personal history of nicotine dependence
CPT/HCPCS: 36415; 49650; 49652; 71046; 80053; 81001; 82948; 85025; 87077; 87088; 87186; 96365; 96366; 96375; 96376; 97161; 97530; C1758; C1781; C9399; G0378; J0131; J0360; J1100; J1170; J2001; J2060; J2270; J2405; J2704; J2710; J3010; J7030; U0003; U0005; A4215; A4618; J3490; J7120

== ENCOUNTER 2024-04-03 21:22 | Emergency (ER) | payer MEDICARE, MEDICAID ==
[~2024-04-03] VITALS: Ht 160 cm; Wt 48.8 kg
[~2024-04-03 21:22] MED LIST changes: -DOCUMENT DATE & TIME OF BETA-BLOCKER PO ONE; -cefazolin/dext.iso 2gm/100ml IV ONE; -famotidine 20mg tablet PO ONE; -ringers solution, lacted 1,000 ML IV SCH
[2024-04-03 21:31] VITALS: TEMP 98
[2024-04-03 22:38] LABS: BILIRUBIN,URINE NEGATIVE (Neg); CLARITY,URINE CLEAR (Clear); COLOR,URINE STRAW (Yellow); GLUCOSE, URINE NEGATIVE (Neg); KETONES,URINE NEGATIVE (Neg); LEUKOCYTE ESTERASE ,URINE TRACE (Neg); NITRITES, URINE NEGATIVE (Neg); OCCULT BLOOD,URINE NEGATIVE (Neg); PROTEIN,URINE NEGATIVE (Neg); UROBILINOGEN,URINE 0.2 E.U/dL (0.2-1.0)
[2024-04-03 22:40] LABS: UA COLLECTION TYPE CLN CATCH MIDSTREAM
[2024-04-03 22:45] LABS: BACTERIA,URINE FEW /HPF (Neg); MUCUS STRANDS NONE SEEN /LPF (Neg); RBC,URINE 0-2 /HPF (0-2); SQUAMOUS EPITHELIAL CELL,UR FEW /LPF (FEW); WBC,URINE 0-4 /HPF (0-4)
[2024-04-03] MEDS ORDERED: PHEN-824 PO (22:50)
[2024-04-03] MEDS ORDERED: CIPR750T4 PO (22:53)
[2024-04-03 23:42] VITALS: BP 198/88; PULSE 72; RESP 15; O2SAT 99
== END 2024-04-03 23:43 | disposition home or self-care (01) ==
LOC: ER 21:23
DX: N39.0 Urinary tract infection, site not specified (principal); I48.91 Unspecified atrial fibrillation; I10 Essential (primary) hypertension; Z88.2 Allergy status to sulfonamides; Z88.8 Allergy status to other drugs, medicaments and biological substances; Z79.899 Other long term (current) drug therapy; Z95.1 Presence of aortocoronary bypass graft; Z98.890 Other specified postprocedural states
CPT/HCPCS: 81001; 87088; 99283

== ENCOUNTER 2024-10-19 22:56 | Emergency (ER) | payer MEDICARE, MEDICAID ==
[~2024-10-19] VITALS: Ht 157.5 cm; Wt 50.2 kg
[~2024-10-19 22:56] MED LIST changes: +CIPR750T4 PO; +PHEN-824 PO
[2024-10-19 23:03] VITALS: BP 219/84; PULSE 77; RESP 18; TEMP 98.3; O2SAT 97
== END 2024-10-20 01:06 | disposition left against medical advice (07) ==
LOC: ER 22:56
DX: S81.851A Open bite, right lower leg, initial encounter (principal); Z53.21 Procedure and treatment not carried out due to patient leaving prior to being seen by health care provider; Z88.1 Allergy status to other antibiotic agents; Z88.0 Allergy status to penicillin; Z88.2 Allergy status to sulfonamides; W55.01XA Bitten by cat, initial encounter; Y93.89 Activity, other specified; Y92.89 Other specified places as the place of occurrence of the external cause; Y99.8 Other external cause status

== ENCOUNTER 2024-10-24 15:37 | Emergency (ER) | payer MEDICARE, MEDICAID ==
[~2024-10-24] VITALS: Ht 157.5 cm; Wt 50.0 kg
[2024-10-24 15:48] VITALS: BP 207/74; PULSE 75; RESP 18; TEMP 97.7; O2SAT 98
[2024-10-24 19:49] LABS: BASOPHILS # (AUTO) 0.1 X10'3 (0-0.2); EOSINOPHILS # (AUTO) 0.1 X10'3 (0-0.9); EOSINOPHILS % (AUTO) 2.3 % (0-6); HEMATOCRIT 41.4 % (35.0-45.0); MEAN CORPUSCULAR VOLUME 94.8 FL (78-98); MONOCYTES # (AUTO) 0.5 X10'3 (0-0.9); RED BLOOD COUNT 4.37 X10'6 (4.20-5.60)
[2024-10-24 19:50] LABS: HEMOGLOBIN 13.8 g/dl (12.0-16.0); LYMPHOCYTES # (AUTO) 1.7 X10'3 (1.1-4.8); LYMPHOCYTES % (AUTO) 29.2 % (21-51); MEAN CORPUSCULAR HEMOGLOBIN 31.6 PG (27.0-31.0); MEAN CORPUSCULAR HGB CONC 33.3 g/dL (33.0-36.5); MEAN PLATELET VOLUME 7.1 FL (7.4-10.4); MONOCYTES % (AUTO) 7.9 % (2-12); NEUTROPHILS # (AUTO) 3.5 X10'3 (1.8-7.7); NEUTROPHILS % (AUTO) 59.6 % (42-75); PLATELET COUNT 249 X10'3 (140-440); RED CELL DISTRIBUTION WIDTH 13.4 % (11.5-14.5); WHITE BLOOD COUNT 5.9 X10'3 (4.5-11.0)
[2024-10-24 19:59] LABS: ALBUMIN 3.7 G/DL (3.4-5.0); ANION GAP 7 (8-16); BLOOD UREA NITROGEN 14 MG/DL (7-18); BUN/CREATININE RATIO 21.5 (10.0-20.0); CALCIUM 9.2 MG/DL (8.5-10.1); CHLORIDE 104 MMOL/L (99-107); CREATININE 0.65 MG/DL (0.40-0.90); GLUCOSE 92 MG/DL (70-104); SODIUM 140 MMOL/L (135-145); TOTAL CARBON DIOXIDE 28.6 MMOL/L (24-32); eCRCL 49 ML/MIN; eGFR 86 ML/MIN
[2024-10-24] MEDS ORDERED: AMOX-580 PO (20:18)
== END 2024-10-24 20:35 | disposition home or self-care (01) ==
LOC: ER 15:38
DX: S81.851A Open bite, right lower leg, initial encounter (principal); I10 Essential (primary) hypertension; I48.91 Unspecified atrial fibrillation; Z95.0 Presence of cardiac pacemaker; Z88.1 Allergy status to other antibiotic agents; Z88.2 Allergy status to sulfonamides; Z91.040 Latex allergy status; Z79.899 Other long term (current) drug therapy; W55.01XA Bitten by cat, initial encounter; Y93.89 Activity, other specified; Y92.89 Other specified places as the place of occurrence of the external cause; Y99.8 Other external cause status
CPT/HCPCS: 36415; 80048; 83605; 84145; 85025; 87040; 99284

== ENCOUNTER 2024-12-13 16:01 | Emergency (ER) | payer MEDICARE, MEDICAID ==
[~2024-12-13] VITALS: Ht 157.5 cm; Wt 49.4 kg
[~2024-12-13 16:01] MED LIST changes: +AMOX-580 PO
[2024-12-13 16:03] VITALS: BP 218/81; PULSE 81; RESP 16; TEMP 98.3; O2SAT 97
== END 2024-12-13 22:10 | disposition left against medical advice (07) ==
LOC: ER 16:02
DX: S81.851A Open bite, right lower leg, initial encounter (principal); Z91.040 Latex allergy status; Z88.2 Allergy status to sulfonamides; Z88.8 Allergy status to other drugs, medicaments and biological substances; W55.01XA Bitten by cat, initial encounter; Y93.89 Activity, other specified; Y92.89 Other specified places as the place of occurrence of the external cause; Y99.8 Other external cause status; Z53.21 Procedure and treatment not carried out due to patient leaving prior to being seen by health care provider

== ENCOUNTER 2025-01-02 02:49 | Emergency (ER) | payer MEDICARE, MEDICAID ==
[~2025-01-02] VITALS: Ht 165.1 cm; Wt 54.5 kg
[2025-01-02] MEDS ORDERED: DOXY-224 PO (08:03)
[2025-01-02 08:17] VITALS: BP 199/81; PULSE 77; RESP 16; TEMP 98.1; O2SAT 97
== END 2025-01-02 08:18 | disposition home or self-care (01) ==
LOC: ER 02:50
DX: Z48.00 Encounter for change or removal of nonsurgical wound dressing (principal); I10 Essential (primary) hypertension; I48.91 Unspecified atrial fibrillation; Z88.0 Allergy status to penicillin; Z88.2 Allergy status to sulfonamides; Z88.1 Allergy status to other antibiotic agents; Z95.0 Presence of cardiac pacemaker; Z79.899 Other long term (current) drug therapy; W55.01XA Bitten by cat, initial encounter; Y93.89 Activity, other specified; Y92.89 Other specified places as the place of occurrence of the external cause; Y99.8 Other external cause status
CPT/HCPCS: 99283